=== PATIENT | male | born 1960 | race Caucasian/White ===

== ENCOUNTER 2016-08-25 12:39 | Emergency (ER) | payer BC ==
[~2016-08-25] VITALS: Ht 180.3 cm; Wt 83.0 kg
[~2016-08-25 12:39] MED LIST: GABA800T PO; LEVO750T6 PO; OXYC-302 PO; TAMS-11 PO
[2016-08-25] MEDS ORDERED: SODIUM CHLORIDE 0.9% 1,000 ML IV ONE (12:59)
[2016-08-25] MEDS ORDERED: SODIUM CHLORIDE FLUSH 10ML SYR IVF ONE (13:00)
[2016-08-25] MEDS ORDERED: ONDANSETRON 2MG/ML, 2ML IVPush ONE (13:00)
[2016-08-25] MEDS ORDERED: SODIUM CHLORIDE 0.9% 1,000ML IVBOLUS ONE (13:00)
[2016-08-25] MEDS ORDERED: HYDROmorphone 1 MG/ML, 1ML ONE ×2 (13:17→16:01)
[2016-08-25] MEDS ORDERED: ONDANSETRON 2MG/ML, 2ML ONE (13:17)
[2016-08-25] MEDS: HYDROmorphone 1 MG/ML, 1ML IVPush PRN ×2 (13:20→16:10)
[2016-08-25 13:50] LABS: ASPARTATE AMINO TRANSFERASE 38 U/L (15-37); BLOOD UREA NITROGEN 16 mg/dL (7-18)
[2016-08-25] MEDS ORDERED: OMNIPAQUE 350 MG/ML, 100ML BOTTLE ONE (14:17)
[2016-08-25 16:15] VITALS: BP 120/84
[2016-08-25] MEDS ORDERED: MAALOX/HYOSCYAMINE/LIDOCAINE 45 ML BOTTLE ONE (16:54)
[2016-08-25] MEDS ORDERED: MAALOX/HYOSCYAMINE/LIDOCAINE 45 ML BOTTLE PO ONE (17:00)
== END 2016-08-25 17:06 | disposition home or self-care (01) ==
LOC: ED 17:00
DX: R10.84 Generalized abdominal pain (principal); Z90.6 Acquired absence of other parts of urinary tract
CPT/HCPCS: 36415; 74177; 80053; 81003; 85025; 89055; 93005; 96361; 96374; 96375; 96376; 99285; J1170; J2405; J7030; Q9967

== ENCOUNTER 2019-12-09 09:55 | Inpatient (IN) | payer BC, OTHER ==
[~2019-12-09] VITALS: Ht 180.3 cm; Wt 72.5 kg
[2019-12-09] MEDS ORDERED: SODIUM CHLORIDE FLUSH 10ML SYR IVF ONE (10:30)
[2019-12-09] MEDS ORDERED: ONDANSETRON 2MG/ML, 2ML IVPush ONE (10:30)
[2019-12-09] MEDS ORDERED: ONDANSETRON 2MG/ML, 2ML ONE (10:34)
[2019-12-09] MEDS ORDERED: MORPHINE SULFATE 4 MG/ML, 1ML ONE ×3 (10:35→16:57)
[2019-12-09 10:47] LABS: BASOPHILS % (AUTO) 1 % (0-1); EOSINOPHILS % (AUTO) 1 % (1-7); LYMPHOCYTES % (AUTO) 31 % (22-44); MEAN CORPUSCULAR HEMOGLOBIN 31.8 pg (27.5-34.5); MEAN CORPUSCULAR HGB CONC 34.1 g/dL (33.2-36.2); MONOCYTES % (AUTO) 11 % (2-9); NEUTROPHILS % (AUTO) 56 % (42-75); PLATELET COUNT 268 x10^3/uL (130-400); RED BLOOD COUNT 5.32 x10^6/uL (4.38-5.82); RED CELL DISTRIBUTION WIDTH 13.9 % (9.4-14.8)
[2019-12-09 10:50] LABS: ALANINE AMINOTRANSFERASE 32 U/L (12-78); ANION GAP 7 mmol/L (5-15); CALCIUM 9.3 mg/dL (8.5-10.1); CHLORIDE 110 mmol/L (98-107); CREATININE 0.97 mg/dL (0.7-1.3)
[2019-12-09 10:52] LABS: MD NO
[2019-12-09 10:54] LABS: ALKALINE PHOSPHATASE 71 U/L (45-117); BILIRUBIN,TOTAL 0.4 mg/dL (0.2-1.0); TOTAL PROTEIN 7.8 g/dL (6.4-8.2)
[2019-12-09] MEDS: MORPHINE SULFATE 4 MG/ML, 1ML IVPush PRN ×2 (11:15→13:53)
--- NOTE | 2019-12-09 11:40 | NUR ---
PT TO CT
[2019-12-09] MEDS ORDERED: OMNIPAQUE 350 MG/ML, 100ML BOTTLE ONE (12:22)
--- NOTE | 2019-12-09 12:58 | NUR ---
PT STATED HE IS STILL UNABLE TO VOID. ERP OKAY WITH STRAIGHT CATHING PT. PT AGREED TO STRAIGHT CATH. URINE SAMPLE OBTAINED AND WALKED TO LAB.
[2019-12-09 13:01] LABS: MICROSCOPIC NOT IND
[2019-12-09] MEDS ORDERED: BLOOD THINNER PO (14:01)
[2019-12-09] MEDS ORDERED: ASPI-515 PO (14:01)
--- NOTE | 2019-12-09 14:01 | NUR ---
PT MEDICATED FOR PAIN PER EMAR. PT AWARE HE IS TO BE ADMITTED. PT UNSURE WHAT BLOOD THINNER HE TAKES AT HOME. STATED DR. TORO PRESCRIBES IT TO HIM. MED REQ UPDATED BEST POSSIBLE.
--- NOTE | 2019-12-09 14:30 | NUR ---
Break RN note: Pt resting in bed, c/o 10/10 abd pain despite meds given. POC discussed, awaiting hospitalist orders for additional medications. Pt denies other needs.
[2019-12-09] MEDS ORDERED: ACETAMINOPHEN 325 MG TABLET PO PRN (15:00)
[2019-12-09] MEDS ORDERED: ENALAPRILAT 1.25 MG/ML, 2ML IVPush PRN (15:00)
[2019-12-09] MEDS ORDERED: ONDANSETRON ODT 4 MG PO PRN (15:00)
[2019-12-09] MEDS ORDERED: TRAZODONE 50MG TABLET PO PRN (15:00)
[2019-12-09] MEDS: SODIUM CHLORIDE 0.9% 1,000 ML IV SCH ×2 (15:30→21:10)
--- NOTE | 2019-12-09 15:30 | NUR ---
PT AWARE OF ADMIT ORDER. ORDERED FLUIDS STARTED, PT GIVEN WARM BLANKET. PT HAS URINAL WITHIN REACH.
[2019-12-09] MEDS: morphine SULFATE 10 MG/ML, 1ML IVPush PRN ×2 (17:01→23:50)
--- NOTE | 2019-12-09 17:05 | NUR ---
PT MEDICATED FOR PAIN PER EMAR. LIGHTS LOWERED FOR PT COMFORT. CALL LIGHT WITHIN REACH. URINAL DUMPED FOR LATER USE. PT RESTING CALMLY IN BED AT THIS TIME.
--- NOTE | 2019-12-09 18:28 | NUR ---
REPORT GIVEN TO HUSSAIN PARSONS FOR ROOM 344.
[2019-12-09] MEDS: ONDANSETRON 2MG/ML, 2ML IVPush PRN (19:16)
[2019-12-09 20:00] VITALS: BP 127/73
[2019-12-09] MEDS: HYDROcodone/APAP 5/325 TABLET PO PRN (20:03)
[2019-12-09 20:53] VITALS: BP 123/76
[2019-12-10 00:07] VITALS: BP 97/62
[2019-12-10] MEDS: ONDANSETRON 2MG/ML, 2ML IVPush PRN ×3 (03:11→15:47)
[2019-12-10] MEDS: HYDROcodone/APAP 5/325 TABLET PO PRN ×3 (03:16→20:24)
[2019-12-10] MEDS: SODIUM CHLORIDE 0.9% 1,000 ML IV SCH ×3 (04:59→20:24)
[2019-12-10 05:04] LABS: BASOPHILS % (AUTO) 1 % (0-1); EOSINOPHILS % (AUTO) 2 % (1-7); LYMPHOCYTES % (AUTO) 24 % (22-44); MEAN CORPUSCULAR HEMOGLOBIN 32.1 pg (27.5-34.5); MEAN CORPUSCULAR HGB CONC 33.9 g/dL (33.2-36.2); MEAN PLATELET VOLUME 7.1 fL (7.4-10.4); MONOCYTES % (AUTO) 12 % (2-9); NEUTROPHILS % (AUTO) 62 % (42-75); PLATELET COUNT 237 x10^3/uL (130-400); RED BLOOD COUNT 4.84 x10^6/uL (4.38-5.82); RED CELL DISTRIBUTION WIDTH 13.9 % (9.4-14.8)
[2019-12-10 05:12] LABS: CHLORIDE 112 mmol/L (98-107); MD NO
[2019-12-10 05:27] LABS: ANION GAP 5 mmol/L (5-15); CHOL/HDL RATIO 3.5; CHOLESTEROL, TOTAL 127 mg/dL (140-239); HDL CHOL % 28 % (26-37); HDL CHOLESTEROL (DIRECT) 36 mg/dL (40-60); LDL CHOLESTEROL,CALCULATED 71 mg/dL (54-169); TRIGLYCERIDES 98 mg/dL (50-200); VLDL CHOLESTEROL 20 mg/dL (0-25)
[2019-12-10] MEDS ORDERED: FLU VACC QS2020-21(6MOS UP)/PF 60MCG/0.5 ML SYR IM ONE (08:00)
[2019-12-10] MEDS: morphine SULFATE 10 MG/ML, 1ML IVPush PRN ×2 (08:40→12:43)
[2019-12-10 08:47] VITALS: BP 126/88
[2019-12-10] MEDS ORDERED: ASPIRIN 325 MG TABLET PO SCH (09:00)
[2019-12-10 12:00] VITALS: BP 102/71
[2019-12-10] MEDS: TAMSULOSIN 0.4 MG CAP.ER.24H PO SCH (12:43)
[2019-12-10 13:28] VITALS: BP 119/79
[2019-12-10] MEDS ORDERED: METO-282 PO (13:57)
[2019-12-10 18:37] VITALS: BP 110/67
[2019-12-11 00:03] VITALS: BP 102/63
[2019-12-11] MEDS: HYDROcodone/APAP 5/325 TABLET PO PRN ×2 (00:22→06:38)
[2019-12-11] MEDS: ONDANSETRON 2MG/ML, 2ML IVPush PRN ×2 (00:24→14:00)
[2019-12-11] MEDS: SODIUM CHLORIDE 0.9% 1,000 ML IV SCH ×3 (06:35→21:02)
[2019-12-11] MEDS: TAMSULOSIN 0.4 MG CAP.ER.24H PO SCH (08:04)
[2019-12-11] MEDS: ASPIRIN 81 MG TABLET EC PO SCH (08:06)
[2019-12-11] MEDS: METOPROLOL SUCCINATE 25 MG TAB.ER.24H PO SCH (08:06)
[2019-12-11] MEDS: morphine SULFATE 10 MG/ML, 1ML IVPush PRN (08:07)
[2019-12-11] MEDS ORDERED: KETOROLAC 30 MG/1 ML IVPush PRN (08:30)
[2019-12-11 08:31] LABS: BASOPHILS % (AUTO) 0 % (0-1); EOSINOPHILS % (AUTO) 1 % (1-7); LYMPHOCYTES % (AUTO) 17 % (22-44); MEAN CORPUSCULAR HEMOGLOBIN 31.8 pg (27.5-34.5); MEAN CORPUSCULAR HGB CONC 33.3 g/dL (33.2-36.2); MEAN PLATELET VOLUME 7.2 fL (7.4-10.4); MONOCYTES % (AUTO) 9 % (2-9); NEUTROPHILS % (AUTO) 73 % (42-75); PLATELET COUNT 238 x10^3/uL (130-400); RED BLOOD COUNT 4.93 x10^6/uL (4.38-5.82); RED CELL DISTRIBUTION WIDTH 13.9 % (9.4-14.8)
[2019-12-11 08:32] VITALS: BP 136/89
[2019-12-11 08:33] LABS: MD NO
[2019-12-11 12:35] LABS: CLOSTRIDIUM DIFFICILE ANTIGEN NEGATIVE; CLOSTRIDIUM DIFFICILE TOXIN NEGATIVE (Negative)
[2019-12-11 13:03] LABS: OCCULT BLOOD NEGATIVE (NEGATIVE)
[2019-12-11 13:08] VITALS: BP 144/75
[2019-12-11 18:31] VITALS: BP 118/75
[2019-12-12 00:16] VITALS: BP 125/74
[2019-12-12] MEDS: SODIUM CHLORIDE 0.9% 1,000 ML IV SCH (05:09)
[2019-12-12 05:30] LABS: BASOPHILS % (AUTO) 0 % (0-1); EOSINOPHILS % (AUTO) 2 % (1-7); LYMPHOCYTES % (AUTO) 17 % (22-44); MEAN CORPUSCULAR HEMOGLOBIN 31.8 pg (27.5-34.5); MEAN CORPUSCULAR HGB CONC 33.9 g/dL (33.2-36.2); MEAN PLATELET VOLUME 6.7 fL (7.4-10.4); MONOCYTES % (AUTO) 9 % (2-9); NEUTROPHILS % (AUTO) 71 % (42-75); PLATELET COUNT 242 x10^3/uL (130-400); RED BLOOD COUNT 4.85 x10^6/uL (4.38-5.82); RED CELL DISTRIBUTION WIDTH 13.8 % (9.4-14.8)
[2019-12-12 05:42] LABS: ALANINE AMINOTRANSFERASE 110 U/L (12-78); ALBUMIN 3.3 g/dL (3.4-5.0); ANION GAP 5 mmol/L (5-15); CALCIUM 8.7 mg/dL (8.5-10.1); CHLORIDE 116 mmol/L (98-107)
[2019-12-12 05:44] LABS: ALKALINE PHOSPHATASE 86 U/L (45-117); BILIRUBIN,TOTAL 0.9 mg/dL (0.2-1.0); TOTAL PROTEIN 6.6 g/dL (6.4-8.2)
[2019-12-12 05:59] LABS: MD NO
[2019-12-12 06:04] VITALS: BP 132/77
[2019-12-12] MEDS: ASPIRIN 81 MG TABLET EC PO SCH (08:14)
[2019-12-12] MEDS: METOPROLOL SUCCINATE 25 MG TAB.ER.24H PO SCH (08:14)
[2019-12-12] MEDS: TAMSULOSIN 0.4 MG CAP.ER.24H PO SCH (08:14)
[2019-12-12] MEDS ORDERED: ONDA4TAB13 PO (10:29)
[2019-12-12] MEDS ORDERED: FLU VACC QS2020-21(6MOS UP)/PF 60MCG/0.5 ML SYR IM-VACC ONE (11:30)
== END 2019-12-12 11:44 | disposition home or self-care (01) | DRG 700 ==
LOC: ED 10:19 → EDIP 13:47 → 3N 18:47
PROVIDERS: ADMIT Hospitalist; ATTEND Family Medicine
DX: N28.1 Cyst of kidney, acquired (principal); F12.90 Cannabis use, unspecified, uncomplicated; F17.210 Nicotine dependence, cigarettes, uncomplicated; K76.89 Other specified diseases of liver; I10 Essential (primary) hypertension; K21.9 Gastro-esophageal reflux disease without esophagitis; K59.00 Constipation, unspecified; Z79.82 Long term (current) use of aspirin; Z90.49 Acquired absence of other specified parts of digestive tract; Z23 Encounter for immunization
CPT/HCPCS: 36415; 74177; 80048; 80053; 80061; 81003; 82272; 85025; 87324; 90686; 99285; G0378; J1885; J2405; Q9967; J2270; J7030

== ENCOUNTER 2019-12-22 06:45 | Emergency (ER) | payer MEDICAID ==
[~2019-12-22] VITALS: Ht 180.3 cm; Wt 82.7 kg
[~2019-12-22 06:45] MED LIST changes: +ASPI-515 PO; +BLOOD THINNER PO; +METO-282 PO; +ONDA4TAB13 PO
--- NOTE | 2019-12-22 07:10 | NUR ---
PT C/O INABILITY TO URINATE OR HAVE A BOWEL SINCE 1800 YESTERDAY. PT ALSO Hs RIGHT LOWER ABD PAIN, 11/22. PT DENIES CHEST PAIN, SOB N/V OR DIARRHEA. PT STARTED GABAPENTIN A WEEK AGO. PT HH OF "SMALL" AORTIC ANEURYSM THAT WAS DISCOVERED IN SEPTEMBER 2019. PT WAS IN THE HOSPITAL A WEEK AGO FOR ABD PAIN, PT RELEASED AFTER IMPROVEMENT WITH NO DX THAT HE WAS AWARE OF.
[2019-12-22] MEDS ORDERED: SODIUM CHLORIDE FLUSH 10ML SYR IVF ONE (07:30)
[2019-12-22] MEDS ORDERED: MORPHINE SULFATE 4 MG/ML, 1ML IVPush PRN (07:30)
[2019-12-22] MEDS ORDERED: ONDANSETRON 2MG/ML, 2ML IVPush ONE (07:30)
--- NOTE | 2019-12-22 07:50 | NUR ---
MORGAN PLACED, 20 FR COUDE
[2019-12-22 08:04] LABS: MICROSCOPIC NOT IND
[2019-12-22] MEDS ORDERED: MORPHINE SULFATE 4 MG/ML, 1ML ONE (08:09)
[2019-12-22] MEDS ORDERED: ONDANSETRON 2MG/ML, 2ML ONE (08:09)
--- NOTE | 2019-12-22 08:13 | NUR ---
PT MEDICATED PER MAR
[2019-12-22 08:37] LABS: BASOPHILS % (AUTO) 1 % (0-1); EOSINOPHILS % (AUTO) 1 % (1-7); LYMPHOCYTES % (AUTO) 23 % (22-44); MEAN CORPUSCULAR HEMOGLOBIN 31.9 pg (27.5-34.5); MEAN PLATELET VOLUME 7.2 fL (7.4-10.4); MONOCYTES % (AUTO) 9 % (2-9); NEUTROPHILS % (AUTO) 65 % (42-75); PLATELET COUNT 284 x10^3/uL (130-400); RED BLOOD COUNT 5.31 x10^6/uL (4.38-5.82); RED CELL DISTRIBUTION WIDTH 14.7 % (9.4-14.8)
[2019-12-22 08:41] LABS: ALANINE AMINOTRANSFERASE 46 U/L (12-78); ANION GAP 5 mmol/L (5-15); CALCIUM 9.4 mg/dL (8.5-10.1); CHLORIDE 112 mmol/L (98-107); CREATININE 0.95 mg/dL (0.7-1.3)
[2019-12-22 08:43] LABS: ALKALINE PHOSPHATASE 64 U/L (45-117); BILIRUBIN,TOTAL 0.7 mg/dL (0.2-1.0); TOTAL PROTEIN 7.9 g/dL (6.4-8.2)
[2019-12-22 08:44] LABS: MD NO
--- NOTE | 2019-12-22 08:53 | NUR ---
PT OFF FLOOR TO CT
--- NOTE | 2019-12-22 09:02 | NUR ---
PT BACK IN ROOM
[2019-12-22] MEDS ORDERED: OMNIPAQUE 350 MG/ML, 100ML BOTTLE ONE (09:03)
[2019-12-22] MEDS ORDERED: HYDROmorphone 1 MG/ML, 1ML INJ IV ONE (09:30)
[2019-12-22] MEDS ORDERED: HYDROmorphone 1 MG/ML, 1ML INJ ONE (09:37)
--- NOTE | 2019-12-22 09:40 | NUR ---
PT MEDICATED PER APR FOR PAIN. PAIN CURRENTLY 10/23.
--- NOTE | 2019-12-22 09:54 | NUR ---
PT STATES HE NOT ABLE TO HAVE A BOWEL MOVEMENT AT THIS TIME.
[2019-12-22] MEDS ORDERED: DICYCLOMINE 10 MG/ML, 2ML IM ONE (10:00)
--- NOTE | 2019-12-22 10:16 | NUR ---
LEG BAG PLACED ON PATIENT. PT EDUCATED ON URINARY CATH.
[2019-12-22 11:00] VITALS: BP 140/77
--- NOTE | 2019-12-22 11:44 | NUR ---
PT REC'VD DISCHARGE INSTRUCTIONS AN EDUCATION. PT HAD NO FURTHER QUESTIONS. PT AMBULATED TO DC AREA, STEADY GAIT
== END 2019-12-22 11:52 | disposition home or self-care (01) ==
LOC: ED 08:24
DX: R19.7 Diarrhea, unspecified (principal); G89.29 Other chronic pain; R10.31 Right lower quadrant pain; R33.9 Retention of urine, unspecified; I44.4 Left anterior fascicular block; R94.31 Abnormal electrocardiogram [ECG] [EKG]; F17.290 Nicotine dependence, other tobacco product, uncomplicated
CPT/HCPCS: 36415; 51702; 74177; 80053; 81003; 85025; 93005; 96374; 96375; 99285; C1726; J1170; J2270; J2405; Q9967

== ENCOUNTER 2020-01-05 05:12 | Emergency (ER) | payer MEDICAID ==
[~2020-01-05] VITALS: Ht 180.3 cm; Wt 81.0 kg
[2020-01-05] MEDS ORDERED: ONDANSETRON ODT 4 MG PO ONE (05:30)
[2020-01-05] MEDS ORDERED: KETOROLAC 30 MG/1 ML IM ONE (05:30)
[2020-01-05] MEDS ORDERED: ONDANSETRON ODT 4 MG ONE (05:55)
[2020-01-05] MEDS ORDERED: KETOROLAC 30 MG/1 ML ONE (05:55)
[2020-01-05 06:00] LABS: BASOPHILS % (AUTO) 1 % (0-1); EOSINOPHILS % (AUTO) 1 % (1-7); LYMPHOCYTES % (AUTO) 14 % (22-44); MEAN CORPUSCULAR HEMOGLOBIN 32.4 pg (27.5-34.5); MEAN CORPUSCULAR HGB CONC 34.2 g/dL (33.2-36.2); MEAN PLATELET VOLUME 6.6 fL (7.4-10.4); MONOCYTES % (AUTO) 9 % (2-9); NEUTROPHILS % (AUTO) 76 % (42-75); PLATELET COUNT 285 x10^3/uL (130-400); RED BLOOD COUNT 5.01 x10^6/uL (4.38-5.82); RED CELL DISTRIBUTION WIDTH 13.9 % (9.4-14.8)
[2020-01-05 06:05] LABS: ALBUMIN 3.9 g/dL (3.4-5.0); CALCIUM 8.9 mg/dL (8.5-10.1); CREATININE 0.96 mg/dL (0.7-1.3)
--- NOTE | 2020-01-05 06:05 | NUR ---
PT HERE FOR ABD PAIN AND INABILITY TO VOID. PT SAID LAST REGULAR VOID WAS 1700 YESTERDAY, HE VOIDED A SMALL AMOUNT AT 2100 AND 0300. PT HAS HAD MORGAN IN PAST. LAST PLACEMENT MORGAN WAS A 20 FR COUDE. PT HAS AN ENLARGED PROSTATE. PT MEDICATED FOR DISCOMFORT AND COUDE ORDERED FROM [facility]. PT HAS NO OTHER NEEDS AT THIS TIME AND MORGAN WILL BE PLACED WHEN RECIEVED FROM [facility]. PT MADE AWARE. CALL LIGHT IN REACH
[2020-01-05 06:08] LABS: MD NO
[2020-01-05 06:47] LABS: ANION GAP 7 mmol/L (5-15); CHLORIDE 111 mmol/L (98-107)
--- NOTE | 2020-01-05 06:57 | NUR ---
MORGAN PLACED. PT TOLERATED WELL. UA WALKED TO LAB. REPORT TO RAFAL PARSONS.
[2020-01-05] MEDS ORDERED: LIDOCAINE 2%,20 ML JEL.PF.APP MM ONE (07:00)
[2020-01-05 07:02] LABS: MICROSCOPIC INDICATED
[2020-01-05 08:21] VITALS: BP 136/72
== END 2020-01-05 08:32 | disposition home or self-care (01) ==
LOC: ED 07:29
DX: N40.1 Benign prostatic hyperplasia with lower urinary tract symptoms (principal); R33.8 Other retention of urine; I10 Essential (primary) hypertension; Z90.49 Acquired absence of other specified parts of digestive tract
CPT/HCPCS: 36415; 51702; 80048; 81001; 82040; 85025; 96372; 99284; J1885; Q0162

== ENCOUNTER 2020-01-05 14:09 | Emergency (ER) | payer MEDICAID ==
[~2020-01-05] VITALS: Ht 180.3 cm; Wt 82.6 kg
[2020-01-05] MEDS ORDERED: LIDOCAINE 2%,20 ML JEL.PF.APP MM ONE (15:33)
[2020-01-05] MEDS ORDERED: HYDROmorphone 1 MG/ML, 1ML INJ ONE (15:59)
--- NOTE | 2020-01-05 16:09 | NUR ---
PT STATES MORGAN HAS NOT BEEN DRAINING SINCE BEING PLACED THIS AM. FLUSHED MORGAN, WAS UNABLE TO WITHDRAW. MORGAN PULLLED, ATTEMPTED TO PLACE A NEW MORGAN, PT HAS TOO MUCH PAIN TO CONTINUE WITH MORGAN.
[2020-01-05] MEDS ORDERED: HYDROmorphone 1 MG/ML, 1ML INJ IM ONE (16:30)
--- NOTE | 2020-01-05 16:45 | NUR ---
20 FR COUDE INSERTED.
[2020-01-05 17:35] VITALS: BP 127/68
--- NOTE | 2020-01-05 17:35 | NUR ---
Patient/Caregiver given discharge instructions and they have confirmed that they understand the instructions. Patient ambulatory with steady gait.
== END 2020-01-05 17:37 | disposition home or self-care (01) ==
LOC: ED 15:05
DX: N28.1 Cyst of kidney, acquired (principal); R10.9 Unspecified abdominal pain; R33.9 Retention of urine, unspecified; F17.210 Nicotine dependence, cigarettes, uncomplicated; I10 Essential (primary) hypertension; Z90.49 Acquired absence of other specified parts of digestive tract
CPT/HCPCS: 51702; 74176; 96372; 99284; 99406; J1170

== ENCOUNTER 2020-01-17 01:32 | Emergency (ER) | payer MEDICAID ==
[~2020-01-17] VITALS: Ht 180.3 cm; Wt 80.0 kg
--- NOTE | 2020-01-17 01:35 | NUR ---
PT BIB [facility] FOR MORGAN ACCIDENTALLY BEING PULLED OUT. PT STATES HE WAS RESTING IN BED WITH THE CATH UNDER HIS LEG, ROLLED OVER AND IT YANKED OUT. PT REPORTS 8/10 PAIN AT THIS TIME. SOME BLEEDING NOTED, MEDICATED [employer]GRAMS DIRECTOR PT GIVEN 3 MORPHINE, 4 ZOFRAN [employer] PROGRAMS DIRECTOR. WCTM. DANIELLE VALLEJO AT BS FOR EVAL AND POC
[2020-01-17] MEDS ORDERED: LIDOCAINE 2%,20 ML JEL.PF.APP MM ONE ×2 (02:04→02:30)
[2020-01-17] MEDS ORDERED: HYDROmorphone 1 MG/ML, 1ML INJ ONE (02:15)
--- NOTE | 2020-01-17 02:26 | NUR ---
CATH INSERTED. PT STATED IT WAS PAINFUL BUT NOW STATES THE PAIN IS DECREASED. PT MEDICATED PER MAR PRIOR TO INSERTION. NAD, TO BE DC'D. WCGILES.
[2020-01-17] MEDS ORDERED: HYDROmorphone 1 MG/ML, 1ML INJ IV ONE (02:30)
[2020-01-17 03:44] VITALS: BP 114/58
--- NOTE | 2020-01-17 03:44 | NUR ---
Patient/Caregiver given discharge instructions and they have confirmed that they understand the instructions. Patient ambulatory with steady gait. NAD, DENIES ADDITIONAL QUESTIONS OR NEEDS, PT STATES HIS IS COMING TO GET HIM, PT MAINTAINING RA SAT >92%, PT STATES "I ALWAYS HAVE LOW OXYGEN LEVELS". PT PROVIDED NEW LEG BAG, MORGAN CAPS, EDUCATED ON CARE. NO PERSONAL BELONGINGS LEFT IN ROOM AT TIME OF DC
== END 2020-01-17 03:45 | disposition home or self-care (01) ==
LOC: ED 02:02
DX: T83.9XXA Unspecified complication of genitourinary prosthetic device, implant and graft, initial encounter (principal); G89.11 Acute pain due to trauma; N48.89 Other specified disorders of penis; F17.210 Nicotine dependence, cigarettes, uncomplicated; I10 Essential (primary) hypertension; Z90.49 Acquired absence of other specified parts of digestive tract
CPT/HCPCS: 51702; 96374; 99285; 99406; J1170

== ENCOUNTER 2020-01-19 16:08 | Emergency (ER) | payer MEDICAID ==
[~2020-01-19] VITALS: Ht 180.3 cm; Wt 81.6 kg
--- NOTE | 2020-01-19 16:20 | NUR ---
BLADDER SCANNER IN TRIAGE SHOWED 30 MLS
[2020-01-19 16:46] LABS: BASOPHILS % (AUTO) 1 % (0-1); EOSINOPHILS % (AUTO) 3 % (1-7); LYMPHOCYTES % (AUTO) 21 % (22-44); MEAN CORPUSCULAR HEMOGLOBIN 32.4 pg (27.5-34.5); MEAN CORPUSCULAR HGB CONC 34.7 g/dL (33.2-36.2); MEAN PLATELET VOLUME 6.8 fL (7.4-10.4); MONOCYTES % (AUTO) 10 % (2-9); NEUTROPHILS % (AUTO) 66 % (42-75); PLATELET COUNT 258 x10^3/uL (130-400); RED BLOOD COUNT 5.17 x10^6/uL (4.38-5.82); RED CELL DISTRIBUTION WIDTH 13.8 % (9.4-14.8)
[2020-01-19 16:48] LABS: MD NO
[2020-01-19 16:53] LABS: ALANINE AMINOTRANSFERASE 37 U/L (12-78); ANION GAP 6 mmol/L (5-15); CALCIUM 9.5 mg/dL (8.5-10.1); CHLORIDE 113 mmol/L (98-107); CREATININE 0.95 mg/dL (0.7-1.3)
[2020-01-19 16:55] LABS: ALKALINE PHOSPHATASE 66 U/L (45-117); BILIRUBIN,TOTAL 0.4 mg/dL (0.2-1.0); TOTAL PROTEIN 7.9 g/dL (6.4-8.2)
--- NOTE | 2020-01-19 18:13 | NUR ---
UPON ARRIVAL TO ROOM MD AT BEDSIDE WITH ULTRASOUND. MD STATES BLADDER HAS MINIMAL URINE. TO BE MEDICATED FOR PAIN. LEG BAG CHANGED TO URINE COLLECTION BAG TO GRAVITY. TO OBTAIN URINE SAMPLE.
[2020-01-19] MEDS ORDERED: HYDROcodone/APAP 5/325 TABLET ONE (18:15)
[2020-01-19] MEDS ORDERED: PHENAZOPYRIDINE 200 MG TABLET ONE (18:15)
[2020-01-19] MEDS ORDERED: HYDROcodone/APAP 5/325 TABLET PO ONE (18:30)
[2020-01-19] MEDS ORDERED: PHENAZOPYRIDINE 200 MG TABLET PO ONE (18:30)
--- NOTE | 2020-01-19 18:31 | NUR ---
PT C/O LOWER ABD PAIN/BLADDER PAIN WITH THE FEELING OF NEEDS TO URINATE. PT STATES THE PAIN INCREASED TODAY AND [facility] [place] TOLD HIM TO GO TO THE ED. PT HAD HIS URINARY CATH REPLACED MONDAY NIGHT AFTER HE PULLED HIS PREVIOUS ONE OUT
--- NOTE | 2020-01-19 18:32 | NUR ---
CONT LAST NOTE: PULLED HIS URINARY CATH OUT IN HIS SLEEP. PAIN 10/. PT STATES THE PAIN IS TOO MUCH FOR HIM.
--- NOTE | 2020-01-19 19:09 | NUR ---
BEDSIDE REPORT FROM JAQUELINE DEMPSEY. PT RESTING IN BED, JEANNINE DODSON. CALL LIGHT IN REACH.
[2020-01-19 20:03] LABS: MICROSCOPIC INDICATED
[2020-01-19 21:13] VITALS: BP 124/75
--- NOTE | 2020-01-19 21:14 | NUR ---
AT APPROX 2029, PT STATES "THEY DIDN'T DO ANYTHING FOR ME." ERP BACK TO BEDSIDE TO TALK WITH PT. THIS RN EDUCATED PT ABOUT D/C INSTRUCTIONS INCLUDING MEDICATIONS. PT STATES "HONEY, NORCO ISN'T AN OPIATE, IT'S LIKE A REALLY STRONG ADVIL."
== END 2020-01-19 21:15 | disposition home or self-care (01) ==
LOC: ED 18:56
DX: N30.00 Acute cystitis without hematuria (principal); I10 Essential (primary) hypertension; Z90.49 Acquired absence of other specified parts of digestive tract; F17.200 Nicotine dependence, unspecified, uncomplicated
CPT/HCPCS: 36415; 80053; 81001; 85025; 87077; 87086; 99284

== ENCOUNTER 2020-01-31 12:31 | Emergency (ER) | payer MEDICAID ==
[~2020-01-31] VITALS: Ht 172.7 cm; Wt 75.0 kg
[2020-01-31 12:44] VITALS: BP 129/70
--- NOTE | 2020-01-31 12:46 | NUR ---
PT BIB EMS FOR HEARING VOICES. STARTED THIS YEAR. STATES VOICES TELLS HIM TO BE SI. BUT DENIES INTENTIONS TO ACT ON SI OR SA. NO PLANS. NO OTHER COMPLAINTS.
[2020-01-31 13:22] LABS: BASOPHILS % (AUTO) 0 % (0-1); EOSINOPHILS % (AUTO) 1 % (1-7); LYMPHOCYTES % (AUTO) 26 % (22-44); MEAN CORPUSCULAR HEMOGLOBIN 32.3 pg (27.5-34.5); MEAN CORPUSCULAR HGB CONC 34.5 g/dL (33.2-36.2); MEAN PLATELET VOLUME 6.5 fL (7.4-10.4); MONOCYTES % (AUTO) 10 % (2-9); NEUTROPHILS % (AUTO) 62 % (42-75); PLATELET COUNT 289 x10^3/uL (130-400); RED BLOOD COUNT 4.78 x10^6/uL (4.38-5.82); RED CELL DISTRIBUTION WIDTH 13.6 % (9.4-14.8)
[2020-01-31] MEDS ORDERED: QUETIAPINE 25MG TABLET ONE (13:29)
[2020-01-31 13:33] LABS: ALBUMIN 3.8 g/dL (3.4-5.0); ANION GAP 5 mmol/L (5-15); CALCIUM 8.9 mg/dL (8.5-10.1); CHLORIDE 114 mmol/L (98-107); CREATININE 0.92 mg/dL (0.7-1.3); MD NO; SALICYLATE LEVEL 3.3 mg/dL (2.8-20.0)
[2020-01-31] MEDS ORDERED: QUETIAPINE 25MG TABLET PO ONE (14:00)
--- NOTE | 2020-01-31 14:08 | NUR ---
REPORT TO AARON PARSONS
--- NOTE | 2020-01-31 15:29 | NUR ---
PT RESTING, ORDERED MEAL TRAY.
--- NOTE | 2020-01-31 16:00 | NUR ---
PT GIVEN MEAL TRAY. RESTING WATCHING TV.
--- NOTE | 2020-01-31 17:00 | NUR ---
REPORT TO RAEGAN
--- NOTE | 2020-01-31 17:50 | NUR ---
BELONGINGS W PT FOR TRANSFER
[2020-02-01] MEDS ORDERED: FINA1TAB16 PO (03:50)
[2020-02-01] MEDS ORDERED: CEFD300C37 PO (03:52)
[2020-02-01] MEDS ORDERED: ATOR20TA86 PO (03:54)
== END 2020-02-01 00:13 | disposition home or self-care (01) ==
LOC: ED 14:45
DX: R45.851 Suicidal ideations (principal); R44.0 Auditory hallucinations
CPT/HCPCS: 36415; 80048; 80299; 80320; 80329; 82040; 85025; 87426; 99284; G0480

== ENCOUNTER 2020-01-31 15:51 | Inpatient (IN) | payer MEDICAID ==
[~2020-01-31] VITALS: Ht 172.7 cm; Wt 77.4 kg
[2020-01-31] MEDS ORDERED: ACETAMINOPHEN 325 MG TABLET PO PRN (17:00)
[2020-01-31] MEDS ORDERED: BISACODYL 10 MG SUPP PR PRN (17:00)
[2020-01-31] MEDS ORDERED: ONDANSETRON ODT 4 MG PO PRN (17:00)
[2020-01-31] MEDS ORDERED: DOCUSATE 100 MG CAPSULE PO PRN (17:00)
[2020-01-31 18:03] VITALS: BP 147/83
[2020-01-31 19:57] VITALS: BP 106/66
[2020-01-31] MEDS: TAMSULOSIN 0.4 MG CAP.ER.24H PO SCH (20:29)
[2020-02-01 03:25] VITALS: BP 142/80
[2020-02-01] MEDS ORDERED: FINA1TAB16 PO (03:50)
[2020-02-01] MEDS ORDERED: CEFD300C37 PO (03:52)
[2020-02-01] MEDS ORDERED: ATOR20TA86 PO (03:54)
[2020-02-01] MEDS ORDERED: AMOXICILLIN/CLAV 875-125MG TABLET PO SCH (04:00)
[2020-02-01] MEDS: PHENAZOPYRIDINE 200 MG TABLET PO SCH ×2 (04:16→11:01)
[2020-02-01 05:32] LABS: CHOL/HDL RATIO 2.7; FREE T4 (FREE THYROXINE) 0.91 ng/dL (0.76-1.46); LDL/HDL RATIO 1.2 (0.5-3.0)
[2020-02-01 07:04] VITALS: BP 110/70
[2020-02-01] MEDS ORDERED: NICOTINE 14MG/24 HR PATCH.TD24 TD ONE (09:00)
[2020-02-01 11:42] LABS: MICROSCOPIC AUTO
[2020-02-01 11:56] LABS: AMPHETAMINE SCREEN, URINE Negative (Negative); BARBITURATE SCREEN, URINE Negative (Negative); BENZODIAZEPINE SCREEN, URINE Negative (Negative); CANNABINOID SCREEN, URINE Positive (Negative); COCAINE SCREEN, URINE Negative (Negative); METHADONE SCREEN, URINE Negative (Negative); OPIATE SCREEN, URINE Negative (Negative)
[2020-02-01] MEDS ORDERED: DIPHENHYDRAMINE 50 MG/ML, 1ML IM ONE (12:30)
[2020-02-01] MEDS ORDERED: DIPHENHYDRAMINE 50 MG/ML, 1ML ONE (12:31)
[2020-02-01 12:56] VITALS: BP 113/72
[2020-02-01] MEDS: DIVALPROEX 250 MG TABLET.DR PO SCH ×2 (17:22→20:39)
[2020-02-01 19:51] VITALS: BP 117/72
[2020-02-01] MEDS: TAMSULOSIN 0.4 MG CAP.ER.24H PO SCH (20:39)
[2020-02-01] MEDS: QUETIAPINE 25MG TABLET PO SCH (20:39)
[2020-02-01] MEDS: TRAZODONE 50MG TABLET PO PRN (23:20)
[2020-02-02 08:01] VITALS: BP 105/68
[2020-02-02] MEDS ORDERED: NICOTINE 14MG/24 HR PATCH.TD24 ONE (09:07)
[2020-02-02] MEDS: TAMSULOSIN 0.4 MG CAP.ER.24H PO SCH (09:09)
[2020-02-02] MEDS: DIVALPROEX 250 MG TABLET.DR PO SCH ×2 (09:09→20:40)
[2020-02-02 11:18] LABS: MICROSCOPIC NOT IND
[2020-02-02 20:05] VITALS: BP 100/59
[2020-02-02] MEDS: TRAZODONE 50MG TABLET PO PRN (20:41)
[2020-02-02] MEDS: QUETIAPINE 25MG TABLET PO SCH (20:41)
[2020-02-03 07:00] VITALS: BP 143/69
[2020-02-03] MEDS: DIVALPROEX 250 MG TABLET.DR PO SCH ×2 (09:28→20:14)
[2020-02-03] MEDS: TAMSULOSIN 0.4 MG CAP.ER.24H PO SCH (09:28)
[2020-02-03 19:28] VITALS: BP 111/64
[2020-02-03] MEDS: QUETIAPINE 25MG TABLET PO SCH (20:14)
[2020-02-04] MEDS ORDERED: CALCIUM CARBONATE 500 MG TAB.CHEW PO PRN (02:30)
[2020-02-04] MEDS ORDERED: CALCIUM CARBONATE 500 MG TAB.CHEW ONE (02:35)
[2020-02-04 07:37] VITALS: BP 122/77
[2020-02-04] MEDS: TAMSULOSIN 0.4 MG CAP.ER.24H PO SCH (09:20)
[2020-02-04] MEDS: DIVALPROEX 250 MG TABLET.DR PO SCH (09:20)
[2020-02-04] MEDS ORDERED: NICOTINE 14MG/24 HR PATCH.TD24 TD SCH (09:30)
[2020-02-04] MEDS ORDERED: DIVA-59 PO (16:24)
[2020-02-04] MEDS ORDERED: QUET25TA7 PO (16:24)
[2020-02-04] MEDS ORDERED: NICO-486 TD (16:24)
[2020-02-04] MEDS ORDERED: TAMS-11 PO (16:24)
== END 2020-02-04 17:32 | disposition home or self-care (01) | DRG 885 ==
LOC: 3E 17:46
PROVIDERS: ADMIT Psychiatry & Neurology Psychosomatic Medicine; ATTEND Psychiatry & Neurology Psychosomatic Medicine
DX: F31.30 Bipolar disorder, current episode depressed, mild or moderate severity, unspecified (principal); R45.851 Suicidal ideations; I10 Essential (primary) hypertension; G47.00 Insomnia, unspecified; E78.5 Hyperlipidemia, unspecified; I25.10 Atherosclerotic heart disease of native coronary artery without angina pectoris; N40.0 Benign prostatic hyperplasia without lower urinary tract symptoms; Z79.82 Long term (current) use of aspirin; Z79.899 Other long term (current) drug therapy; Z88.8 Allergy status to other drugs, medicaments and biological substances
CPT/HCPCS: 36415; 71045; 80061; 80307; 81001; 81003; 82140; 84439; 84443; 87086; 93005; J1200

== ENCOUNTER 2020-03-06 17:45 | Emergency (ER) | payer MEDICAID ==
[~2020-03-06] VITALS: Ht 180.3 cm; Wt 87.6 kg
[~2020-03-06 17:45] MED LIST changes: +ATOR20TA86 PO; +CEFD300C37 PO; +DIVA-59 PO; +FINA1TAB16 PO; +NICO-486 TD; +QUET25TA7 PO
--- NOTE | 2020-03-06 18:07 | NUR ---
Break RN: Pt connected to all monitors. Law at bedside. All needs met at this time. Will await orders.
[2020-03-06] MEDS ORDERED: MORPHINE SULFATE 4 MG/ML, 1ML ONE ×2 (18:17→20:55)
[2020-03-06] MEDS ORDERED: ONDANSETRON 2MG/ML, 2ML ONE (18:17)
[2020-03-06] MEDS: MORPHINE SULFATE 4 MG/ML, 1ML IVPush PRN ×2 (18:21→20:59)
[2020-03-06] MEDS ORDERED: OMNIPAQUE 350 MG/ML, 100ML BOTTLE ONE (18:30)
[2020-03-06] MEDS ORDERED: SODIUM CHLORIDE FLUSH 10ML SYR IVF ONE (18:30)
[2020-03-06 18:36] LABS: BASOPHILS % (AUTO) 1 % (0-1); EOSINOPHILS % (AUTO) 0 % (1-7); LYMPHOCYTES % (AUTO) 22 % (22-44); MEAN CORPUSCULAR HEMOGLOBIN 32.7 pg (27.5-34.5); MEAN CORPUSCULAR HGB CONC 34.6 g/dL (33.2-36.2); MEAN PLATELET VOLUME 7.2 fL (7.4-10.4); MONOCYTES % (AUTO) 14 % (2-9); NEUTROPHILS % (AUTO) 64 % (42-75); PLATELET COUNT 245 x10^3/uL (130-400); RED BLOOD COUNT 5.07 x10^6/uL (4.38-5.82); RED CELL DISTRIBUTION WIDTH 14.1 % (9.4-14.8)
[2020-03-06 18:41] LABS: INTERNATIONAL NORMALIZED RATIO 1.1 (0.93-1.1); PROTHROMBIN TIME 11.6 Seconds (9.6-11.5)
[2020-03-06 18:42] LABS: ALANINE AMINOTRANSFERASE 43 U/L (12-78); ALBUMIN 3.7 g/dL (3.4-5.0); ANION GAP 4 mmol/L (5-15); CALCIUM 8.8 mg/dL (8.5-10.1); CHLORIDE 112 mmol/L (98-107); CREATININE 1.03 mg/dL (0.7-1.3)
[2020-03-06 18:43] LABS: MD NO
--- NOTE | 2020-03-06 18:45 | NUR ---
pt sitting up in bed, no distress, report recived, vss
[2020-03-06 18:47] LABS: ALKALINE PHOSPHATASE 55 U/L (45-117); BILIRUBIN,TOTAL 0.8 mg/dL (0.2-1.0); TOTAL PROTEIN 7.7 g/dL (6.4-8.2); TROPONIN I < 0.015 ng/mL (0.000-0.045)
--- NOTE | 2020-03-06 21:01 | NUR ---
pt in bed admin pain meds, no distress
[2020-03-06 21:14] LABS: TROPONIN I < 0.015 ng/mL (0.000-0.045)
[2020-03-06 22:45] VITALS: BP 122/71
== END 2020-03-06 22:55 | disposition home or self-care (01) ==
LOC: ED 18:15
DX: R07.89 Other chest pain (principal); R06.02 Shortness of breath; I10 Essential (primary) hypertension; F17.210 Nicotine dependence, cigarettes, uncomplicated; Z90.49 Acquired absence of other specified parts of digestive tract
CPT/HCPCS: 36415; 71045; 71275; 80053; 83880; 84484; 85025; 85610; 85730; 93005; 96374; 96376; 99285; 99406; J2270; Q9967